=== PATIENT | female | born 1980 | race Caucasian/White ===

== ENCOUNTER 2022-06-28 08:19 | Outpatient (CLI) | payer OTHER, SELFPAY ==
[2022-06-28 15:12] LABS: Basophils Absolute Auto 0.01 K/uL (0.00-0.30); Basophils Percent Auto 0.2 % (0.0-3.0); Eosinophils Absolute Auto 0.29 K/uL (0.00-0.50); Immature Granulocytes Abs Auto 0.02 K/uL (0.00-0.30); Lymphocytes Absolute Auto 1.61 K/uL (0.90-2.90); Lymphocytes Percent Auto 33.2 % (20-44); Mean Corpuscular HGB Conc 34 gm/dL (32-36); Mean Corpuscular Hemoglobin 30 pg (26-34); Mean Corpuscular Volume 87 fL (80-100); Monocytes Percent Auto 8.2 % (0.0-11.0); Neutrophils Absolute Auto 2.52 K/uL (1.7-7.0); Platelet Count* 233 K/uL (140-440); RDW Coefficient of Variation % 12.2 % (11.5-15.5); Red Blood Count 5.07 m/uL (4.00-5.20); White Blood Count* 4.85 K/uL (4.50-11.00)
[2022-06-28 15:21] LABS: Chloride* 102 mmol/L (96-114); Potassium* 4.5 mmol/L (3.6-5.1); Sodium* 139 mmol/L (135-149)
[2022-06-28 15:24] LABS: Blood Urea Nitrogen* 18 mg/dL (5-24); Carbon Dioxide* 31 mmol/L (20-32); Cholesterol* 153 mg/dL (90-199); Creatinine* 0.7 mg/dL (0.5-1.5); Estimated Glomerular Filt Rate 109 ml/min; Glucose* 110 mg/dL (60-115); Triglycerides* 205 mg/dL (40-149); Vitamin D 25 Hydroxy* 25 ng/mL (30-80)
[2022-06-28 15:25] LABS: Calcium* 8.8 mg/dL (8.4-10.6); HDL Cholesterol* 46 mg/dL (>=50); LDL Cholesterol Calculated 66 mg/dL (<100)
[2022-06-28 15:28] LABS: Slide Review Reflex No
== END 2022-06-28 08:20 | disposition home or self-care (01) ==
PROVIDERS: PCP Family Medicine; Visit Provider Family Medicine
DX: R73.01 Impaired fasting glucose (principal); I10 Essential (primary) hypertension; E55.9 Vitamin D deficiency, unspecified; F98.8 Other specified behavioral and emotional disorders with onset usually occurring in childhood and adolescence; G43.829 Menstrual migraine, not intractable, without status migrainosus
CPT/HCPCS: 80048; 80061; 82306; 85025

== ENCOUNTER 2022-12-07 14:14 | Outpatient (CLI) | payer OTHER, SELFPAY | END 2022-12-07 14:15 | disposition home or self-care (01) | LOC: INJ CL 14:16 | PROVIDERS: PCP Family Medicine; Visit Provider Family Medicine | DX: M51.26 Other intervertebral disc displacement, lumbar region (principal); M54.16 Radiculopathy, lumbar region | CPT/HCPCS: 64483; J1100; Q9966 ==

== ENCOUNTER 2022-12-28 09:41 | Outpatient (CLI) | payer OTHER, SELFPAY ==
[2022-12-28 13:52] LABS: Basophils Absolute Auto 0.01 K/uL (0.00-0.30); Basophils Percent Auto 0.2 % (0.0-3.0); Eosinophils Absolute Auto 0.22 K/uL (0.00-0.50); Eosinophils Percent Auto 4.2 % (0.0-7.0); Hematocrit 41.1 % (33.0-51.0); Hemoglobin* 13.7 gm/dL (12.0-16.0); Lymphocytes Absolute Auto 1.62 K/uL (0.90-2.90); Lymphocytes Percent Auto 31.2 % (20-44); Mean Corpuscular HGB Conc 33 gm/dL (32-36); Mean Corpuscular Hemoglobin 30 pg (26-34); Mean Corpuscular Volume 88 fL (80-100); Monocytes Percent Auto 7.1 % (0.0-11.0); Neutrophils Absolute Auto 2.98 K/uL (1.7-7.0); Neutrophils Percent Auto 57.3 % (42.0-72.0); Platelet Count* 206 K/uL (140-440); RDW Coefficient of Variation % 13.1 % (11.5-15.5); Red Blood Count 4.65 m/uL (4.00-5.20)
[2022-12-28 14:00] LABS: Chloride* 107 mmol/L (96-114); Sodium* 141 mmol/L (135-149)
[2022-12-28 14:01] LABS: Potassium* 4.7 mmol/L (3.6-5.1)
[2022-12-28 14:03] LABS: Creatinine* 0.7 mg/dL (0.5-1.5); Estimated Glomerular Filt Rate 109 ml/min
[2022-12-28 14:04] LABS: Blood Urea Nitrogen* 14 mg/dL (5-24); Calcium* 8.7 mg/dL (8.4-10.6); Carbon Dioxide* 31 mmol/L (20-32); Glucose* 100 mg/dL (60-115)
[2022-12-28 14:07] LABS: Slide Review Reflex No
== END 2022-12-28 09:42 | disposition home or self-care (01) ==
PROVIDERS: PCP Family Medicine; Visit Provider Family Medicine
DX: Z01.818 Encounter for other preprocedural examination (principal)
CPT/HCPCS: 80048; 85025

== ENCOUNTER 2025-05-07 09:28 | Outpatient (CLI) | payer OTHER, SELFPAY ==
[2025-05-08 19:30] LABS: HPV Source Cervix
== END 2025-05-07 09:29 | disposition home or self-care (01) ==
PROVIDERS: PCP Family Medicine; Visit Provider Family Medicine
DX: I10 Essential (primary) hypertension (principal); R73.03 Prediabetes; E55.9 Vitamin D deficiency, unspecified; E66.01 Morbid (severe) obesity due to excess calories; F41.9 Anxiety disorder, unspecified; Z12.4 Encounter for screening for malignant neoplasm of cervix; Z11.51 Encounter for screening for human papillomavirus (HPV)
CPT/HCPCS: 80053; 80061; 82306; 87624; 87625; 88141; 88142